=== PATIENT | male | born 1935 | race Caucasian/White ===

== ENCOUNTER 2016-09-14 07:07 | Day surgery (SDC) | payer OTHER ==
[~2016-09-14 07:07] MED LIST: ALBUTEROL SULF8.5 GM IH; AMLODIPINE BESYL5 MG PO; APRESOLINE25 MG PO; ASPIRIN81 M2 PO; ATORVASTATIN CA20 MG PO; AZITHROMYCIN500 M1 PO; B-121000 MC2 PO; CALCITRIOL0.25 MCG PO; CARVEDILOL12.5 MG PO; CARVEDILOL25 MG PO; CLONIDINE HCL0.1 MG PO; COMBIVENT RESPIM4 GM IH; DOXAZOSIN MESYLA4 MG PO; DOXAZOSIN MESYLA8 MG PO; HYDRALAZINE HC100 MG PO; HYDRALAZINE HCL25 MG PO; LASIX40 MG PO; LO-DOSE ASPIRIN81 M1 PO; LOSARTAN POTAS100 MG PO; OMEPRAZOLE20 M2 PO; OMEPRAZOLE20 MG PO; PREDNISONE20 MG PO; PREDNISONE5 MG PO; VITAMIN B-121000 MCG PO
[2016-09-14 08:50] LABS: METH RESISTANT S AUREUS PCR NEGATIVE (NEGATIVE); PROBE CHECK PASS; SPECIMEN PROCESSING CONTROL PASS
== END 2016-09-14 09:25 | disposition home or self-care (01) ==
LOC: CATH 07:07
PROVIDERS: Surgery
DX: T82.858A Stenosis of other vascular prosthetic devices, implants and grafts, initial encounter (principal); Y83.2 Surgical operation with anastomosis, bypass or graft as the cause of abnormal reaction of the patient, or of later complication, without mention of misadventure at the time of the procedure; I12.0 Hypertensive chronic kidney disease with stage 5 chronic kidney disease or end stage renal disease; N18.6 End stage renal disease; Z99.2 Dependence on renal dialysis; J43.9 Emphysema, unspecified; Z95.820 Peripheral vascular angioplasty status with implants and grafts; Z79.82 Long term (current) use of aspirin
CPT/HCPCS: 87641; C1725; C1769; C1894; J1644; J2250; J3010

== ENCOUNTER 2016-11-29 17:15 | Emergency (ER) | payer OTHER ==
[~2016-11-29] VITALS: Ht 172.7 cm; Wt 87.0 kg
[2016-11-29 19:40] VITALS: BP 201/87
[2016-12-06] MEDS ORDERED: RENA-VITE RX T1 EACH PO (16:25)
== END 2016-11-29 19:41 | disposition home or self-care (01) ==
LOC: EME 17:15 → RME 17:15
DX: T82.838A Hemorrhage due to vascular prosthetic devices, implants and grafts, initial encounter (principal); Y83.2 Surgical operation with anastomosis, bypass or graft as the cause of abnormal reaction of the patient, or of later complication, without mention of misadventure at the time of the procedure; N19 Unspecified kidney failure; Z99.2 Dependence on renal dialysis; Z79.82 Long term (current) use of aspirin

== ENCOUNTER 2016-12-07 07:08 | Day surgery (SDC) | payer OTHER ==
[~2016-12-07] VITALS: Ht 172.7 cm; Wt 69.0 kg
[~2016-12-07 07:08] MED LIST changes: +RENA-VITE RX T1 EACH PO
[2016-12-07 08:54] LABS: METH RESISTANT S AUREUS PCR NEGATIVE (NEGATIVE)
[2016-12-07 08:58] LABS: PROBE CHECK PASS; SPECIMEN PROCESSING CONTROL PASS
== END 2016-12-07 09:45 | disposition home or self-care (01) ==
LOC: CATH 07:08
PROVIDERS: Surgery
PROC: 05HY33Z Insertion of Infusion Device into Upper Vein, Percutaneous Approach (ICD-10-PCS; principal; 2016-12-07)
PROC: 057Y3DZ Dilation of Upper Vein with Intraluminal Device, Percutaneous Approach (ICD-10-PCS; principal; 2016-12-07)
PROC: 3E03317 Introduction of Other Thrombolytic into Peripheral Vein, Percutaneous Approach (ICD-10-PCS; principal; 2016-12-07)
PROC: B51W1ZZ Fluoroscopy of Dialysis Shunt/Fistula using Low Osmolar Contrast (ICD-10-PCS; principal; 2016-12-07)
DX: T82.858A Stenosis of other vascular prosthetic devices, implants and grafts, initial encounter (principal); I12.0 Hypertensive chronic kidney disease with stage 5 chronic kidney disease or end stage renal disease; N18.6 End stage renal disease; Z99.2 Dependence on renal dialysis; Z79.82 Long term (current) use of aspirin; Z79.52 Long term (current) use of systemic steroids; Y83.2 Surgical operation with anastomosis, bypass or graft as the cause of abnormal reaction of the patient, or of later complication, without mention of misadventure at the time of the procedure
CPT/HCPCS: 87641; C1725; C1769; C1874; C1894; J1644; J2250; J3010

== ENCOUNTER 2016-12-11 20:38 | Inpatient (IN) | payer OTHER ==
[~2016-12-11] VITALS: Ht 172.7 cm; Wt 70.5 kg
[2016-12-11 21:38] LABS: HEMATOCRIT 27.8 % (38.0-50.0); MCH 30.2 PG (29.0-34.0); MCHC 32.4 G/DL (30.0-36.0); MCV 93.3 FL (86-99); MEAN PLAT.VOLUME 10.3 uM^3 (9.0-12.4); PLATELET COUNT 75 K/uL (156-360); RBC DIS.WIDTH-CV 13.7 % (11.8-14.6); RBC DIS.WIDTH-SD 46.6 % (39-53); RED BLOOD COUNT 2.98 M/uL (4.00-5.50); WHITE BLOOD COUNT 2.7 K/uL (4.1-10.2)
[2016-12-11 21:48] LABS: INTER. NORMALIZED RATIO 1.2; PROTHROMBIN TIME 12.7 (9.2-11.2); PTT 28.5 (25-32)
[2016-12-11 21:49] LABS: CHLORIDE 95 mEq/L (99-109); POTASSIUM 4.5 mEq/L (3.7-5.4); SODIUM 136 mEq/L (136-147)
[2016-12-11 21:50] LABS: GLUCOSE 118 mg/dL (70-99)
[2016-12-11 21:52] LABS: ANION GAP 16 MEQ/L (2-14)
[2016-12-11 21:54] LABS: GFR ESTIMATE (CALCULATED) 6 mL/min/
[2016-12-11 21:55] LABS: UREA NITROGEN (BUN) 64 mg/dL (9-23)
[2016-12-11 21:59] LABS: TROP-I INTERPRETATION NEGATIVE; TROPONIN-I 0.05 ng/mL (0.0-0.30)
[2016-12-12] VITALS (7 sets, daily range): BP systolic 96–130; BP diastolic 30–60
[2016-12-12 03:54] LABS: TROP-I INTERPRETATION NEGATIVE; TROPONIN-I 0.04 ng/mL (0.0-0.30)
[2016-12-12 07:41] LABS: POINT-OF-CARE METER ID UU13113702
[2016-12-12 10:42] LABS: ALKALINE PHOSPHATASE 68 IU/L (3-129); ANION GAP 12 MEQ/L (2-14); CHLORIDE 96 MEQ/L (99-109); GFR ESTIMATE (CALCULATED) 6 mL/min/; GLUCOSE 117 mg/dL (70-99); POTASSIUM 4.9 MEQ/L (3.7-5.4); SAMPLE HEMOLYSIS CHECK 0; SAMPLE ICTERIC CHECK 0; SAMPLE LIPEMIA CHECK 0; SODIUM 133 MEQ/L (136-147); TOTAL BILIRUBIN 0.7 MG/DL (0.0-1.0); UREA NITROGEN (BUN) 68 mg/dL (9-23)
[2016-12-12 11:11] LABS: HEMATOCRIT 22.5 % (38.0-50.0); MCH 30.3 PG (29.0-34.0); MCHC 32.9 G/DL (30.0-36.0); MCV 92.2 FL (86-99); MEAN PLAT.VOLUME 11.5 uM^3 (9.0-12.4); PLATELET COUNT 72 K/uL (156-360); RBC DIS.WIDTH-SD 47.7 % (39-53); RED BLOOD COUNT 2.44 M/uL (4.00-5.50)
[2016-12-12 11:12] LABS: WHITE BLOOD COUNT 5.6 K/uL (4.1-10.2)
[2016-12-12 11:17] LABS: TROP-I INTERPRETATION NEGATIVE; TROPONIN-I 0.04 ng/mL (0.0-0.30)
[2016-12-12 11:55] LABS: ABS NEUTROPHIL COUNT 4.8; ANISOCYTOSIS 1+; BAND NEUTROPHILS 47.8 % (0-8.0); BASOPHILS 0.9 %; EOSINOPHIL ABS CT 0.1; EOSINOPHILS 2.6 % (0-5.0); INSTRUMENT ABS NEUTROPHIL CT 4.8 K/uL; LYMPHOCYTES 6.1 % (15.0-45.0); METAMYELOCYTES 1.7 %; MICROCYTOSIS 1+; MYELOCYTES 1.7 %; PLAT.SUFFICIENCY DECREASED; POIKILOCYTOSIS 1+; SEG.NEUTROPHILS 37.4 % (46.0-76.0)
[2016-12-13] VITALS (7 sets, daily range): BP systolic 122–141; BP diastolic 57–95
[2016-12-13 06:25] LABS: HEMATOCRIT 24.2 % (38.0-50.0); MCHC 32.2 G/DL (30.0-36.0); MCV 93.1 FL (86-99); MEAN PLAT.VOLUME 11.4 uM^3 (9.0-12.4); PLATELET COUNT 91 K/uL (156-360); RBC DIS.WIDTH-SD 47.8 % (39-53)
[2016-12-13 06:44] LABS: ANION GAP 14 MEQ/L (2-14); CHLORIDE 99 MEQ/L (99-109); GFR ESTIMATE (CALCULATED) 5 mL/min/; GLUCOSE 101 mg/dL (70-99); POTASSIUM 4.6 MEQ/L (3.7-5.4); SAMPLE HEMOLYSIS CHECK 0; SAMPLE ICTERIC CHECK 0; SAMPLE LIPEMIA CHECK 0; SODIUM 133 MEQ/L (136-147); UREA NITROGEN (BUN) 78 mg/dL (9-23)
[2016-12-13 06:45] LABS: VANCOMYCIN, TROUGH 11.1 MCG/ML (10-20)
[2016-12-13 08:00] LABS: EOSINOPHIL (%) 4.7 % (0-5); EOSINOPHIL COUNT 0.3 K/uL (0-0.3); HEMATOLOGY COMMENT 1 SMEAR COMPATIBLE; IMMATURE GRANULOCYTE (%) 1.7 % (0.0-0.7); IMMATURE GRANULOCYTE COUNT 0.1 K/uL; INSTRUMENT ABS NEUTROPHIL CT 4.7 K/uL; LYMPHOCYTE COUNT 0.5 K/uL (1.0-2.8); MONOCYTE (%) 7.5 % (3-12); MONOCYTE COUNT 0.5 K/uL (0-0.8); NEUTROPHIL (%) 77.9 % (45-76); NEUTROPHIL COUNT 4.7 K/uL (1.8-6.4)
[2016-12-13 08:40] LABS: HEMATOCRIT 21.2 % (38.0-50.0)
[2016-12-13 16:14] LABS: HEMATOCRIT 26.1 % (38.0-50.0); MCH 29.8 PG (29.0-34.0); MCHC 32.6 G/DL (30.0-36.0); MCV 91.6 FL (86-99); MEAN PLAT.VOLUME 11.3 uM^3 (9.0-12.4); PLATELET COUNT 84 K/uL (156-360); RBC DIS.WIDTH-SD 47.6 % (39-53); RED BLOOD COUNT 2.85 M/uL (4.00-5.50)
[2016-12-13 16:19] LABS: WHITE BLOOD COUNT 9.2 K/uL (4.1-10.2)
[2016-12-13 17:04] LABS: ABS NEUTROPHIL COUNT 7.9; ATYPICAL LYMPHOCYTE 0.9 %; BAND NEUTROPHILS 15.9 % (0-8.0); EOSINOPHIL ABS CT 0.4; EOSINOPHILS 4.4 % (0-5.0); LYMPHOCYTES 4.4 % (15.0-45.0); METAMYELOCYTES 0.9 %; PLAT.SUFFICIENCY DECREASED; POIKILOCYTOSIS 2+; SEG.NEUTROPHILS 69.9 % (46.0-76.0); SMUDGE CELLS 7.1
[2016-12-13 21:04] LABS: HEMATOCRIT 24.1 % (38.0-50.0); MCV 90.9 FL (86-99)
[2016-12-14] VITALS (11 sets, daily range): BP systolic 127–158; BP diastolic 56–81
[2016-12-14 05:44] LABS: EOSINOPHIL (%) 3.6 % (0-5); EOSINOPHIL COUNT 0.3 K/uL (0-0.3); HEMATOCRIT 21.5 % (38.0-50.0); IMMATURE GRANULOCYTE (%) 2.6 % (0.0-0.7); IMMATURE GRANULOCYTE COUNT 0.2 K/uL; INSTRUMENT ABS NEUTROPHIL CT 5.1 K/uL; LYMPHOCYTE COUNT 0.9 K/uL (1.0-2.8); MCH 30.1 PG (29.0-34.0); MCV 91.1 FL (86-99); MEAN PLAT.VOLUME 11.2 uM^3 (9.0-12.4); MONOCYTE (%) 10.4 % (3-12); MONOCYTE COUNT 0.8 K/uL (0-0.8); NEUTROPHIL (%) 70.6 % (45-76); NEUTROPHIL COUNT 5.1 K/uL (1.8-6.4); PLATELET COUNT 78 K/uL (156-360); RBC DIS.WIDTH-CV 14.9 % (11.8-14.6); RBC DIS.WIDTH-SD 49.3 % (39-53); RED BLOOD COUNT 2.36 M/uL (4.00-5.50); WHITE BLOOD COUNT 7.2 K/uL (4.1-10.2)
[2016-12-14 07:27] LABS: ANION GAP 13 MEQ/L (2-14); CHLORIDE 103 MEQ/L (99-109); GFR ESTIMATE (CALCULATED) 9 mL/min/; GLUCOSE 84 mg/dL (70-99); POTASSIUM 4.7 MEQ/L (3.7-5.4); SAMPLE HEMOLYSIS CHECK 0; SAMPLE ICTERIC CHECK 0; SAMPLE LIPEMIA CHECK 0; SODIUM 138 MEQ/L (136-147); UREA NITROGEN (BUN) 46 mg/dL (9-23)
[2016-12-14 15:22] LABS: HEMATOCRIT 24.8 % (38.0-50.0); MCV 90.5 FL (86-99)
[2016-12-14 20:54] LABS: HEMATOCRIT 23.1 % (38.0-50.0); MCV 89.5 FL (86-99)
[2016-12-15 05:13] VITALS: BP 160/80
[2016-12-15 06:18] LABS: ANION GAP 11 MEQ/L (2-14); CHLORIDE 100 MEQ/L (99-109); GFR ESTIMATE (CALCULATED) 7 mL/min/; GLUCOSE 123 mg/dL (70-99); POTASSIUM 4.4 MEQ/L (3.7-5.4); SAMPLE HEMOLYSIS CHECK 0; SAMPLE ICTERIC CHECK 0; SAMPLE LIPEMIA CHECK 0; SODIUM 134 MEQ/L (136-147); UREA NITROGEN (BUN) 55 mg/dL (9-23)
[2016-12-15 06:23] LABS: EOSINOPHIL (%) 3.1 % (0-5); EOSINOPHIL COUNT 0.3 K/uL (0-0.3); HEMATOCRIT 23.5 % (38.0-50.0); IMMATURE GRANULOCYTE COUNT 0.4 K/uL; INSTRUMENT ABS NEUTROPHIL CT 7.1 K/uL; LYMPHOCYTE COUNT 0.9 K/uL (1.0-2.8); MCH 30.5 PG (29.0-34.0); MCV 89.7 FL (86-99); MONOCYTE (%) 9.7 % (3-12); MONOCYTE COUNT 0.9 K/uL (0-0.8); NEUTROPHIL (%) 73.6 % (45-76); NEUTROPHIL COUNT 7.1 K/uL (1.8-6.4); PLATELET COUNT 86 K/uL (156-360); RBC DIS.WIDTH-CV 14.6 % (11.8-14.6); RBC DIS.WIDTH-SD 47.6 % (39-53); RED BLOOD COUNT 2.62 M/uL (4.00-5.50)
[2016-12-15 06:27] LABS: WHITE BLOOD COUNT 9.7 K/uL (4.1-10.2)
[2016-12-15 11:17] LABS: HBSG INDEX 0.21
[2016-12-15 12:32] VITALS: BP 152/63
[2016-12-15 16:37] VITALS: BP 158/65
[2016-12-15 20:09] VITALS: BP 162/75
[2016-12-15 21:00] VITALS: BP 145/78
[2016-12-15 23:53] VITALS: BP 156/78
[2016-12-16 04:33] VITALS: BP 152/72
[2016-12-16 06:25] LABS: HEMATOCRIT 23.9 % (38.0-50.0); MCH 29.9 PG (29.0-34.0); MCHC 33.1 G/DL (30.0-36.0); MCV 90.5 FL (86-99); RBC DIS.WIDTH-CV 14.3 % (11.8-14.6); RED BLOOD COUNT 2.64 M/uL (4.00-5.50); WHITE BLOOD COUNT 9.2 K/uL (4.1-10.2)
[2016-12-16 06:34] LABS: ANION GAP 9 MEQ/L (2-14); CHLORIDE 99 MEQ/L (99-109); GFR ESTIMATE (CALCULATED) 10 mL/min/; GLUCOSE 103 mg/dL (70-99); POTASSIUM 4.3 MEQ/L (3.7-5.4); SAMPLE HEMOLYSIS CHECK 0; SAMPLE ICTERIC CHECK 0; SAMPLE LIPEMIA CHECK 0; SODIUM 135 MEQ/L (136-147); UREA NITROGEN (BUN) 34 mg/dL (9-23)
[2016-12-16 06:46] LABS: PLATELET COUNT 115 K/uL (156-360)
[2016-12-16 07:36] LABS: ABS NEUTROPHIL COUNT 6.8; BAND NEUTROPHILS 3.5 % (0-8.0); BASOPHILS 1.7 %; EOSINOPHIL ABS CT 0.2; EOSINOPHILS 1.8 % (0-5.0); LYMPHOCYTES 12.2 % (15.0-45.0); METAMYELOCYTES 1.7 %; MYELOCYTES 0.9 %; PLAT.SUFFICIENCY DECREASED; SEG.NEUTROPHILS 70.4 % (46.0-76.0)
[2016-12-16 08:00] VITALS: BP 186/91
[2016-12-16 12:04] VITALS: BP 180/70
[2016-12-16 12:50] LABS: HEMATOCRIT 25.5 % (38.0-50.0); MCV 91.7 FL (86-99)
[2016-12-16 20:11] VITALS: BP 148/78
[2016-12-16 20:56] LABS: HEMATOCRIT 24.4 % (38.0-50.0); MCV 91.7 FL (86-99)
[2016-12-16 23:53] VITALS: BP 160/70
[2016-12-17 05:04] VITALS: BP 173/74
[2016-12-17 05:33] LABS: HEMATOCRIT 23.1 % (38.0-50.0); MCH 30.2 PG (29.0-34.0); MCHC 32.9 G/DL (30.0-36.0); MCV 91.7 FL (86-99); MEAN PLAT.VOLUME 10.5 uM^3 (9.0-12.4); PLATELET COUNT 126 K/uL (156-360); RBC DIS.WIDTH-CV 13.9 % (11.8-14.6); RBC DIS.WIDTH-SD 46.8 % (39-53); RED BLOOD COUNT 2.52 M/uL (4.00-5.50); WHITE BLOOD COUNT 8.7 K/uL (4.1-10.2)
[2016-12-17 06:17] LABS: ANION GAP 10 MEQ/L (2-14); CHLORIDE 100 MEQ/L (99-109); GFR ESTIMATE (CALCULATED) 8 mL/min/; GLUCOSE 97 mg/dL (70-99); POTASSIUM 4.3 MEQ/L (3.7-5.4); SAMPLE HEMOLYSIS CHECK 0; SAMPLE ICTERIC CHECK 0; SAMPLE LIPEMIA CHECK 0; SODIUM 134 MEQ/L (136-147); UREA NITROGEN (BUN) 42 mg/dL (9-23)
[2016-12-17 06:22] LABS: ABS NEUTROPHIL COUNT 6.9; ATYPICAL LYMPHOCYTE 1.9 %; BAND NEUTROPHILS 3.7 % (0-8.0); BASOPHILS 0.9 %; EOSINOPHIL ABS CT 0.1; EOSINOPHILS 0.9 % (0-5.0); INSTRUMENT ABS NEUTROPHIL CT 5.8 K/uL; LYMPHOCYTES 11.9 % (15.0-45.0); METAMYELOCYTES 1.8 %; SEG.NEUTROPHILS 75.2 % (46.0-76.0)
[2016-12-17 11:36] LABS: HEMATOCRIT 24.6 % (38.0-50.0); MCV 91.1 FL (86-99)
[2016-12-17 16:18] VITALS: BP 130/55
[2016-12-17 19:50] VITALS: BP 179/74
[2016-12-18 04:02] VITALS: BP 165/70
[2016-12-18 06:19] LABS: ANION GAP 8 MEQ/L (2-14); CHLORIDE 103 MEQ/L (99-109); GFR ESTIMATE (CALCULATED) 11 mL/min/; GLUCOSE 110 mg/dL (70-99); POTASSIUM 4.1 MEQ/L (3.7-5.4); SAMPLE HEMOLYSIS CHECK 0; SAMPLE ICTERIC CHECK 0; SAMPLE LIPEMIA CHECK 0; SODIUM 137 MEQ/L (136-147); UREA NITROGEN (BUN) 24 mg/dL (9-23); VANCOMYCIN, TROUGH 19.9 MCG/ML (10-20)
[2016-12-18 06:41] LABS: HEMATOCRIT 24.4 % (38.0-50.0); MCH 29.9 PG (29.0-34.0); MCHC 32.4 G/DL (30.0-36.0); MCV 92.4 FL (86-99); MEAN PLAT.VOLUME 10.3 uM^3 (9.0-12.4); RBC DIS.WIDTH-CV 13.7 % (11.8-14.6); RBC DIS.WIDTH-SD 46.2 % (39-53); RED BLOOD COUNT 2.64 M/uL (4.00-5.50); WHITE BLOOD COUNT 9.3 K/uL (4.1-10.2)
[2016-12-18 06:42] LABS: PLATELET COUNT 171 K/uL (156-360)
[2016-12-18 07:33] LABS: ABS NEUTROPHIL COUNT 7.4; ANISOCYTOSIS 1+; ATYPICAL LYMPHOCYTE 0.9 %; BAND NEUTROPHILS 1.7 % (0-8.0); EOSINOPHIL ABS CT 0.2; EOSINOPHILS 1.7 % (0-5.0); INSTRUMENT ABS NEUTROPHIL CT 6.1 K/uL; LYMPHOCYTES 9.6 % (15.0-45.0); MACROCYTES 1+; METAMYELOCYTES 3.5 %; PLAT.SUFFICIENCY ADEQUATE; POLYCHROMASIA 1+; SEG.NEUTROPHILS 77.4 % (46.0-76.0)
[2016-12-18 07:58] VITALS: BP 174/76
[2016-12-18 11:37] VITALS: BP 160/58
== END 2016-12-18 16:28 | disposition home health service (06) | DRG 907 ==
LOC: EME → EDBD 20:38 → EME 20:38 → 3EAST 23:28 → EDOF 23:28 → 3EAST 12-12 01:25
PROVIDERS: Emergency Medicine; Hospitalist; Internal Medicine; Internal Medicine Nephrology; Student in an Organized Health Care Education/Training Program
PROC: 05WY0KZ Revision of Nonautologous Tissue Substitute in Upper Vein, Open Approach (ICD-10-PCS; principal; 2016-12-13)
PROC: B544ZZA Ultrasonography of Left Jugular Veins, Guidance (ICD-10-PCS; principal; 2016-12-13)
PROC: 03WY07Z Revision of Autologous Tissue Substitute in Upper Artery, Open Approach (ICD-10-PCS; principal; 2016-12-13)
PROC: 03BY0ZZ Excision of Upper Artery, Open Approach (ICD-10-PCS; principal; 2016-12-13)
PROC: 3E03317 Introduction of Other Thrombolytic into Peripheral Vein, Percutaneous Approach (ICD-10-PCS; principal; 2016-12-13)
PROC: 02HV33Z Insertion of Infusion Device into Superior Vena Cava, Percutaneous Approach (ICD-10-PCS; principal; 2016-12-13)
PROC: 5A1D60Z (ICD-10-PCS; 2016-12-13)
PROC: 30233N1 Transfusion of Nonautologous Red Blood Cells into Peripheral Vein, Percutaneous Approach (ICD-10-PCS; 2016-12-13)
DX: T85.79XA Infection and inflammatory reaction due to other internal prosthetic devices, implants and grafts, initial encounter (principal); A41.02 Sepsis due to Methicillin resistant Staphylococcus aureus; T82.838A Hemorrhage due to vascular prosthetic devices, implants and grafts, initial encounter; D62 Acute posthemorrhagic anemia; I72.1 Aneurysm of artery of upper extremity; I12.0 Hypertensive chronic kidney disease with stage 5 chronic kidney disease or end stage renal disease; N18.6 End stage renal disease; D61.818 Other pancytopenia; D63.1 Anemia in chronic kidney disease; J44.9 Chronic obstructive pulmonary disease, unspecified; K21.9 Gastro-esophageal reflux disease without esophagitis; E78.00 Pure hypercholesterolemia, unspecified; Z99.2 Dependence on renal dialysis; G43.909 Migraine, unspecified, not intractable, without status migrainosus; K44.9 Diaphragmatic hernia without obstruction or gangrene; I73.9 Peripheral vascular disease, unspecified; Z87.891 Personal history of nicotine dependence
CPT/HCPCS: 71010; 71020; 80048; 80053; 80202; 82948; 83605; 83880; 84484; 85014; 85018; 85025; 85025 91; 85027; 85610; 85730; 86850; 86900; 86901; 86920; 87040; 87070; 87075; 87077; 87186; 87205; 87340; 87502; 87801; 93005; 93306; 94640; 94640 76; 94799; 99202; 99281; 99285; C1752; C1768; C2628; J0330; J0692; J0881; J1170; J1270; J1644; J2405; J2720; J3010; J3370; J7030; J7040; J7050; J7644; P9016

== ENCOUNTER 2017-07-12 20:50 | Inpatient (IN) | payer OTHER ==
[~2017-07-12] VITALS: Ht 172.7 cm; Wt 64.3 kg
[~2017-07-12 20:50] MED LIST changes: +CARDURA2 M1 PO
[2017-07-12 21:43] LABS: EOSINOPHIL (%) 2.8 % (0-5); EOSINOPHIL COUNT 0.1 K/uL (0-0.3); HEMATOCRIT 38.7 % (38.0-50.0); IMMATURE GRANULOCYTE (%) 0.3 % (0.0-0.7); INSTRUMENT ABS NEUTROPHIL CT 3.5 K/uL; LYMPHOCYTE COUNT 0.2 K/uL (1.0-2.8); MCH 28.9 PG (29.0-34.0); MCHC 31.8 G/DL (30.0-36.0); MCV 90.8 FL (86-99); MEAN PLAT.VOLUME 10.1 uM^3 (9.0-12.4); MONOCYTE (%) 0.8 % (3-12); NEUTROPHIL (%) 91.7 % (45-76); NEUTROPHIL COUNT 3.5 K/uL (1.8-6.4); PLATELET COUNT 105 K/uL (156-360); RBC DIS.WIDTH-CV 15.6 % (11.8-14.6); RBC DIS.WIDTH-SD 51.6 % (39-53); RED BLOOD COUNT 4.26 M/uL (4.00-5.50); WHITE BLOOD COUNT 3.9 K/uL (4.1-10.2)
[2017-07-12 21:51] LABS: CHLORIDE 99 mEq/L (99-109); POTASSIUM 5.5 mEq/L (3.7-5.4); SODIUM 136 mEq/L (136-147)
[2017-07-12 21:53] LABS: GLUCOSE 117 mg/dL (70-99)
[2017-07-12 21:55] LABS: ANION GAP 12 MEQ/L (2-14); TOTAL BILIRUBIN 1.4 mg/dL (0.0-1.0)
[2017-07-12 21:57] LABS: ALKALINE PHOSPHATASE 105 IU/L (3-129); GFR ESTIMATE (CALCULATED) 9 mL/min/
[2017-07-12 21:58] LABS: UREA NITROGEN (BUN) 36 mg/dL (9-23)
[2017-07-12 22:04] LABS: TROP-I INTERPRETATION NEGATIVE; TROPONIN-I 0.04 ng/mL (0.0-0.30)
[2017-07-12] MEDS ORDERED: DOXAZOSIN MESYLA4 MG PO (22:33)
[2017-07-12] MEDS ORDERED: RENA PLEX D PO (22:42)
[2017-07-12] MEDS ORDERED: ALEVE220 M2 PO (22:42)
[2017-07-12] MEDS ORDERED: NORVASC5 MG PO (22:43)
[2017-07-13] VITALS (7 sets, daily range): BP systolic 122–159; BP diastolic 60–93
[2017-07-13 04:59] LABS: CARBON DIOXIDE (BICARBONATE) 29.3 MEQ/L (20-31)
[2017-07-13 05:55] LABS: MCHC 31.8 G/DL (30.0-36.0); MCV 91.2 FL (86-99); MEAN PLAT.VOLUME 10.3 uM^3 (9.0-12.4); PLATELET COUNT 98 K/uL (156-360); RBC DIS.WIDTH-CV 15.8 % (11.8-14.6); RBC DIS.WIDTH-SD 52.5 % (39-53); RED BLOOD COUNT 3.73 M/uL (4.00-5.50); WHITE BLOOD COUNT 12.1 K/uL (4.1-10.2)
[2017-07-13 06:02] LABS: INTER. NORMALIZED RATIO 1.2; PROTHROMBIN TIME 13.4 SEC (10.2-12.9)
[2017-07-13 06:05] LABS: PTT 28.7 SEC (25-37)
[2017-07-13 06:16] LABS: TROP-I INTERPRETATION POSITIVE; TROPONIN-I 1.25 ng/mL (0.0-0.30)
[2017-07-13 06:19] LABS: ALKALINE PHOSPHATASE 88 IU/L (3-129); AMYLASE 46 IU/L (1-118); ANION GAP 11 MEQ/L (2-14); CHLORIDE 100 MEQ/L (99-109); DIRECT BILIRUBIN 0.3 mg/dL (0.0-0.3); GFR ESTIMATE (CALCULATED) 9 mL/min/; GLUCOSE 97 mg/dL (70-99); LIPASE 19 U/L (1.0-51.0); MAGNESIUM 1.4 mg/dl (1.3-2.7); POTASSIUM 4.7 MEQ/L (3.7-5.4); SAMPLE HEMOLYSIS CHECK 0; SAMPLE ICTERIC CHECK 0; SAMPLE LIPEMIA CHECK 0; SODIUM 136 MEQ/L (136-147); TOTAL BILIRUBIN 0.8 MG/DL (0.0-1.0); UREA NITROGEN (BUN) 38 mg/dL (9-23)
[2017-07-13 13:08] LABS: TROP-I INTERPRETATION POSITIVE; TROPONIN-I 1.09 ng/mL (0.0-0.30)
[2017-07-13 18:08] LABS: TROP-I INTERPRETATION POSITIVE; TROPONIN-I 0.86 ng/mL (0.0-0.30)
[2017-07-14 06:00] VITALS: BP 132/60
[2017-07-14 07:15] VITALS: BP 116/56
[2017-07-14 08:24] LABS: EOSINOPHIL COUNT 0.4 K/uL (0-0.3); HEMATOCRIT 33.2 % (38.0-50.0); IMMATURE GRANULOCYTE (%) 0.3 % (0.0-0.7); INSTRUMENT ABS NEUTROPHIL CT 4.4 K/uL; LYMPHOCYTE COUNT 0.7 K/uL (1.0-2.8); MCH 29.4 PG (29.0-34.0); MCHC 32.2 G/DL (30.0-36.0); MCV 91.2 FL (86-99); MEAN PLAT.VOLUME 10.8 uM^3 (9.0-12.4); MONOCYTE (%) 10.1 % (3-12); MONOCYTE COUNT 0.6 K/uL (0-0.8); NEUTROPHIL (%) 71.5 % (45-76); NEUTROPHIL COUNT 4.4 K/uL (1.8-6.4); PLATELET COUNT 99 K/uL (156-360); RBC DIS.WIDTH-CV 15.7 % (11.8-14.6); RBC DIS.WIDTH-SD 51.9 % (39-53); RED BLOOD COUNT 3.64 M/uL (4.00-5.50); WHITE BLOOD COUNT 6.1 K/uL (4.1-10.2)
[2017-07-14 08:44] LABS: TROP-I INTERPRETATION INDETERMINATE; TROPONIN-I 0.43 ng/mL (0.0-0.30)
[2017-07-14 09:01] LABS: ANION GAP 12 MEQ/L (2-14); CHLORIDE 102 MEQ/L (99-109); GFR ESTIMATE (CALCULATED) 8 mL/min/; GLUCOSE 134 mg/dL (70-99); POTASSIUM 4.8 MEQ/L (3.7-5.4); SAMPLE HEMOLYSIS CHECK 0; SAMPLE ICTERIC CHECK 0; SAMPLE LIPEMIA CHECK 0; SODIUM 139 MEQ/L (136-147); UREA NITROGEN (BUN) 56 mg/dL (9-23)
[2017-07-14 09:05] LABS: VANCOMYCIN, TROUGH 8.8 MCG/ML (10-20)
[2017-07-14 10:42] LABS: HBSG INDEX 0.21; HEPATITIS B SURFACE ANTIBODY Nonreactive
[2017-07-14 12:15] VITALS: BP 137/60
[2017-07-14 17:20] VITALS: BP 145/100
[2017-07-14 20:40] VITALS: BP 136/84
[2017-07-15] VITALS: BP 130/75
[2017-07-15 04:40] VITALS: BP 156/70
[2017-07-15 07:14] VITALS: BP 146/67
[2017-07-15 07:54] LABS: EOSINOPHIL (%) 4.1 % (0-5); EOSINOPHIL COUNT 0.3 K/uL (0-0.3); HEMATOCRIT 33.5 % (38.0-50.0); IMMATURE GRANULOCYTE (%) 0.4 % (0.0-0.7); INSTRUMENT ABS NEUTROPHIL CT 5.7 K/uL; LYMPHOCYTE COUNT 0.6 K/uL (1.0-2.8); MCH 28.7 PG (29.0-34.0); MCHC 31.6 G/DL (30.0-36.0); MCV 90.8 FL (86-99); MEAN PLAT.VOLUME 10.1 uM^3 (9.0-12.4); MONOCYTE (%) 11.5 % (3-12); MONOCYTE COUNT 0.9 K/uL (0-0.8); NEUTROPHIL (%) 75.6 % (45-76); NEUTROPHIL COUNT 5.7 K/uL (1.8-6.4); PLATELET COUNT 121 K/uL (156-360); RBC DIS.WIDTH-CV 15.9 % (11.8-14.6); RBC DIS.WIDTH-SD 52.5 % (39-53); RED BLOOD COUNT 3.69 M/uL (4.00-5.50); WHITE BLOOD COUNT 7.5 K/uL (4.1-10.2)
[2017-07-15 08:10] LABS: ANION GAP 8 MEQ/L (2-14); CHLORIDE 98 MEQ/L (99-109); POTASSIUM 4.1 MEQ/L (3.7-5.4); SAMPLE HEMOLYSIS CHECK 0; SAMPLE ICTERIC CHECK 0; SAMPLE LIPEMIA CHECK 0; SODIUM 133 MEQ/L (136-147)
[2017-07-15 08:19] LABS: GLUCOSE 144 mg/dL (70-99); UREA NITROGEN (BUN) 28 mg/dL (9-23)
[2017-07-15 08:20] LABS: GFR ESTIMATE (CALCULATED) 12 mL/min/
[2017-07-15 11:27] VITALS: BP 143/67
[2017-07-15 19:42] VITALS: BP 173/74
[2017-07-15 23:14] VITALS: BP 163/72
[2017-07-16 05:37] VITALS: BP 162/74
[2017-07-16 07:45] VITALS: BP 170/73
[2017-07-16 11:48] VITALS: BP 146/67
[2017-07-16 16:45] VITALS: BP 141/95
[2017-07-16 19:42] VITALS: BP 164/71
[2017-07-16 23:31] VITALS: BP 158/68
[2017-07-17 04:21] VITALS: BP 158/72
[2017-07-17 07:40] LABS: HEMATOCRIT 34.6 % (38.0-50.0); MCH 29.7 PG (29.0-34.0); MCHC 32.7 G/DL (30.0-36.0); MCV 90.8 FL (86-99); MEAN PLAT.VOLUME 10.1 uM^3 (9.0-12.4); PLATELET COUNT 122 K/uL (156-360); RBC DIS.WIDTH-CV 15.3 % (11.8-14.6); RBC DIS.WIDTH-SD 50.5 % (39-53); RED BLOOD COUNT 3.81 M/uL (4.00-5.50); WHITE BLOOD COUNT 6.7 K/uL (4.1-10.2)
[2017-07-17 08:03] LABS: ALKALINE PHOSPHATASE 101 IU/L (3-129); ANION GAP 13 MEQ/L (2-14); CHLORIDE 101 MEQ/L (99-109); SAMPLE HEMOLYSIS CHECK 0; SAMPLE ICTERIC CHECK 0; SAMPLE LIPEMIA CHECK 0; UREA NITROGEN (BUN) 36 mg/dL (9-23)
[2017-07-17 08:09] LABS: GFR ESTIMATE (CALCULATED) 9 mL/min/; GLUCOSE 93 mg/dL (70-99); SODIUM 140 MEQ/L (136-147); TOTAL BILIRUBIN 0.5 MG/DL (0.0-1.0)
[2017-07-17 08:45] VITALS: BP 154/67
[2017-07-17] MEDS ORDERED: ENDOCET 5-3251 EACH PO (09:39)
[2017-07-17] MEDS ORDERED: ANCEF,KEFZOL1 GM IV (09:39)
[2017-07-17] MEDS ORDERED: FLAGYL500 MG PO (09:39)
== END 2017-07-17 12:35 | disposition home or self-care (01) | DRG 871 ==
LOC: EME 20:50 → 4EAST 23:02 → EDOF 23:02 → ENRESERV 23:09 → CANRESERV 07-13 01:06 → ENRESERV 07-13 01:06 → EDOF 07-13 01:16 → ENRESERV 07-13 01:17 → 4EAST 07-13 02:22
PROVIDERS: Emergency Medicine; Hospitalist; Internal Medicine; Internal Medicine Cardiovascular Disease; Internal Medicine Nephrology; Physician Assistant Medical
PROC: 0F9430Z Drainage of Gallbladder with Drainage Device, Percutaneous Approach (ICD-10-PCS; 2017-07-13)
PROC: 5A1D70Z Performance of Urinary Filtration, Intermittent, Less than 6 Hours Per Day (ICD-10-PCS; principal; 2017-07-14)
DX: A41.51 Sepsis due to Escherichia coli [E. coli] (principal); K80.00 Calculus of gallbladder with acute cholecystitis without obstruction; R09.02 Hypoxemia; E87.5 Hyperkalemia; E87.2 Acidosis; I12.0 Hypertensive chronic kidney disease with stage 5 chronic kidney disease or end stage renal disease; N18.6 End stage renal disease; D63.1 Anemia in chronic kidney disease; D69.6 Thrombocytopenia, unspecified; D72.819 Decreased white blood cell count, unspecified; I07.1 Rheumatic tricuspid insufficiency; I95.9 Hypotension, unspecified; G62.9 Polyneuropathy, unspecified; J44.9 Chronic obstructive pulmonary disease, unspecified; E78.5 Hyperlipidemia, unspecified; G43.109 Migraine with aura, not intractable, without status migrainosus; R00.0 Tachycardia, unspecified; I73.9 Peripheral vascular disease, unspecified; Z66 Do not resuscitate; Z86.14 Personal history of Methicillin resistant Staphylococcus aureus infection; Z79.82 Long term (current) use of aspirin; Z80.3 Family history of malignant neoplasm of breast; Z85.038 Personal history of other malignant neoplasm of large intestine; Z85.828 Personal history of other malignant neoplasm of skin; Z87.891 Personal history of nicotine dependence; Z90.49 Acquired absence of other specified parts of digestive tract; Z98.42 Cataract extraction status, left eye; Z99.2 Dependence on renal dialysis
CPT/HCPCS: 49405; 71020; 71250; 76705; 80053; 80069; 80202; 81003; 82150; 82248; 82803; 83605; 83690; 83735; 84100; 84484; 85025; 85027; 85610; 85730; 86706; 87040; 87070; 87075; 87077; 87186; 87205; 87340; 87493; 87502; 87801; 93005; 93306; 99281; 99285; C1769; J0456; J0696; J1644; J2405; J3010; J3370; J7030; J7050; J7120; J7644; S0028; S0030

== ENCOUNTER 2017-08-23 10:13 | Inpatient (IN) | payer OTHER ==
[~2017-08-23] VITALS: Ht 172.7 cm; Wt 62.0 kg
[~2017-08-23 10:13] MED LIST changes: +ALEVE220 M2 PO; +ANCEF,KEFZOL1 GM IV; +ENDOCET 5-3251 EACH PO; +FLAGYL500 MG PO; +NORVASC5 MG PO; +RENA PLEX D PO
[2017-08-23 11:14] VITALS: BP 191/74
[2017-08-23 11:58] LABS: METH RESISTANT S AUREUS PCR POSITIVE (NEGATIVE)
[2017-08-23 12:02] LABS: PROBE CHECK PASS; SPECIMEN PROCESSING CONTROL PASS
[2017-08-23 16:22] LABS: HEMATOCRIT 37.9 % (38.0-50.0); MCH 29.8 PG (29.0-34.0); MCHC 31.7 G/DL (30.0-36.0); MEAN PLAT.VOLUME 9.8 uM^3 (9.0-12.4); PLATELET COUNT 130 K/uL (156-360); RBC DIS.WIDTH-SD 58.9 % (39-53); RED BLOOD COUNT 4.03 M/uL (4.00-5.50); WHITE BLOOD COUNT 8.4 K/uL (4.1-10.2)
[2017-08-23 19:35] VITALS: BP 164/71
[2017-08-24 00:29] VITALS: BP 152/68
[2017-08-24 04:58] VITALS: BP 138/63
[2017-08-24 05:28] LABS: HEMATOCRIT 32.2 % (38.0-50.0); MCH 30.1 PG (29.0-34.0); MCHC 31.4 G/DL (30.0-36.0); MCV 95.8 FL (86-99); MEAN PLAT.VOLUME 9.9 uM^3 (9.0-12.4); PLATELET COUNT 114 K/uL (156-360); RBC DIS.WIDTH-CV 17.2 % (11.8-14.6); RBC DIS.WIDTH-SD 60.2 % (39-53); RED BLOOD COUNT 3.36 M/uL (4.00-5.50)
[2017-08-24 05:55] LABS: ANION GAP 11 MEQ/L (2-14); CHLORIDE 98 MEQ/L (99-109); GFR ESTIMATE (CALCULATED) 10 mL/min/ (58.99-99999); GLUCOSE 240 mg/dL (70-99); POTASSIUM 5.3 MEQ/L (3.7-5.4); SAMPLE HEMOLYSIS CHECK 0; SAMPLE ICTERIC CHECK 0; SAMPLE LIPEMIA CHECK 0; SODIUM 137 MEQ/L (136-147); UREA NITROGEN (BUN) 32 mg/dL (9-23)
[2017-08-24 12:17] VITALS: BP 135/65
[2017-08-24 15:33] LABS: HEMATOCRIT 33.3 % (38.0-50.0); MCH 30.1 PG (29.0-34.0); MCHC 31.2 G/DL (30.0-36.0); MCV 96.2 FL (86-99); MEAN PLAT.VOLUME 10.1 uM^3 (9.0-12.4); PLATELET COUNT 124 K/uL (156-360); RBC DIS.WIDTH-CV 17.1 % (11.8-14.6); RBC DIS.WIDTH-SD 60.7 % (39-53); RED BLOOD COUNT 3.46 M/uL (4.00-5.50); WHITE BLOOD COUNT 10.3 K/uL (4.1-10.2)
[2017-08-24 15:42] VITALS: BP 149/67
[2017-08-24 15:58] LABS: ANION GAP 8 MEQ/L (2-14); CHLORIDE 99 MEQ/L (99-109); POTASSIUM 4.5 MEQ/L (3.7-5.4); SAMPLE HEMOLYSIS CHECK 0; SAMPLE ICTERIC CHECK 0; SAMPLE LIPEMIA CHECK 0; SODIUM 137 MEQ/L (136-147)
[2017-08-24 16:04] LABS: UREA NITROGEN (BUN) 15 mg/dL (9-23)
[2017-08-24 16:11] LABS: ALKALINE PHOSPHATASE 103 IU/L (3-129); GFR ESTIMATE (CALCULATED) 19 mL/min/ (58.99-99999); GLUCOSE 118 mg/dL (70-99); TOTAL BILIRUBIN 0.9 MG/DL (0.0-1.0)
[2017-08-24 16:36] LABS: INTER. NORMALIZED RATIO 1.1; PROTHROMBIN TIME 13.1 SEC (10.2-12.9)
[2017-08-24 16:38] LABS: PTT 26.1 SEC (25-37)
[2017-08-24 19:15] VITALS: BP 151/66
[2017-08-25] VITALS (7 sets, daily range): BP systolic 127–167; BP diastolic 57–75
[2017-08-25 05:04] LABS: MCH 30.6 PG (29.0-34.0); MCHC 31.6 G/DL (30.0-36.0); MCV 96.9 FL (86-99); MEAN PLAT.VOLUME 10.2 uM^3 (9.0-12.4); PLATELET COUNT 120 K/uL (156-360); RBC DIS.WIDTH-CV 16.7 % (11.8-14.6); RBC DIS.WIDTH-SD 59.5 % (39-53); WHITE BLOOD COUNT 10.1 K/uL (4.1-10.2)
[2017-08-25 05:34] LABS: CHLORIDE 97 mEq/L (99-109); SODIUM 135 mEq/L (136-147)
[2017-08-25 05:36] LABS: GLUCOSE 108 mg/dL (70-99)
[2017-08-25 05:37] LABS: ANION GAP 10 MEQ/L (2-14)
[2017-08-25 05:40] LABS: GFR ESTIMATE (CALCULATED) 12 mL/min/ (58.99-99999)
[2017-08-25 05:41] LABS: UREA NITROGEN (BUN) 28 mg/dL (9-23)
[2017-08-26 03:39] VITALS: BP 147/57
[2017-08-26 05:13] LABS: EOSINOPHIL (%) 4.9 % (0-5); EOSINOPHIL COUNT 0.2 K/uL (0-0.3); IMMATURE GRANULOCYTE (%) 0.3 % (0.0-0.7); INSTRUMENT ABS NEUTROPHIL CT 2.9 K/uL; LYMPHOCYTE COUNT 0.4 K/uL (1.0-2.8); MCHC 31.3 G/DL (30.0-36.0); MCV 95.8 FL (86-99); MEAN PLAT.VOLUME 9.6 uM^3 (9.0-12.4); MONOCYTE (%) 10.1 % (3-12); MONOCYTE COUNT 0.4 K/uL (0-0.8); NEUTROPHIL (%) 73.8 % (45-76); NEUTROPHIL COUNT 2.9 K/uL (1.8-6.4); PLATELET COUNT 110 K/uL (156-360); RED BLOOD COUNT 3.13 M/uL (4.00-5.50); WHITE BLOOD COUNT 3.9 K/uL (4.1-10.2)
[2017-08-26 05:49] LABS: ALKALINE PHOSPHATASE 88 IU/L (3-129); ANION GAP 12 MEQ/L (2-14); CHLORIDE 97 MEQ/L (99-109); GFR ESTIMATE (CALCULATED) 9 mL/min/ (58.99-99999); GLUCOSE 99 mg/dL (70-99); MAGNESIUM 1.9 mg/dl (1.3-2.7); POTASSIUM 4.7 MEQ/L (3.7-5.4); SAMPLE HEMOLYSIS CHECK 0; SAMPLE ICTERIC CHECK 0; SAMPLE LIPEMIA CHECK 0; SODIUM 138 MEQ/L (136-147); TOTAL BILIRUBIN 0.9 MG/DL (0.0-1.0); UREA NITROGEN (BUN) 47 mg/dL (9-23)
[2017-08-26 08:05] VITALS: BP 144/71
[2017-08-26 12:00] VITALS: BP 140/69
[2017-08-26 16:45] VITALS: BP 133/65
[2017-08-26 20:17] VITALS: BP 111/53
[2017-08-26 23:19] VITALS: BP 123/51
[2017-08-27] VITALS (8 sets, daily range): BP systolic 110–142; BP diastolic 46–60
[2017-08-27 06:17] LABS: HEMATOCRIT 28.7 % (38.0-50.0); MCH 29.8 PG (29.0-34.0); MEAN PLAT.VOLUME 10.3 uM^3 (9.0-12.4); PLATELET COUNT 119 K/uL (156-360); RBC DIS.WIDTH-CV 15.7 % (11.8-14.6); RED BLOOD COUNT 2.99 M/uL (4.00-5.50); WHITE BLOOD COUNT 4.4 K/uL (4.1-10.2)
[2017-08-27 07:13] LABS: ALKALINE PHOSPHATASE 96 IU/L (3-129); ANION GAP 11 MEQ/L (2-14); CHLORIDE 102 MEQ/L (99-109); GFR ESTIMATE (CALCULATED) 12 mL/min/ (58.99-99999); GLUCOSE 93 mg/dL (70-99); POTASSIUM 4.7 MEQ/L (3.7-5.4); SAMPLE HEMOLYSIS CHECK 0; SAMPLE ICTERIC CHECK 0; SAMPLE LIPEMIA CHECK 0; SODIUM 137 MEQ/L (136-147); TOTAL BILIRUBIN 0.8 MG/DL (0.0-1.0); UREA NITROGEN (BUN) 32 mg/dL (9-23)
[2017-08-27 20:59] LABS: POINT-OF-CARE METER ID UU14314088
[2017-08-27 21:38] LABS: BASE EXCESS 0.8 mEq/L (-3 to +3); BICARBONATE 26.6 mEq/L (22-26); CARBOXY HGB 2.7 % (0-5); PCO2 47 mm Hg (35-45); PO2 69 mm Hg (80-100); pH 7.36 (7.35-7.45)
[2017-08-27 21:39] LABS: COMMENTS - BLOOD GASES A+C+; DEVICE NC; O2 FLOW 2 L/MIN; SITE LR
[2017-08-27 21:48] LABS: HEMATOCRIT 29.5 % (38.0-50.0); MCH 30.3 PG (29.0-34.0); MCHC 33.2 G/DL (30.0-36.0); MEAN PLAT.VOLUME 10.1 uM^3 (9.0-12.4); PLATELET COUNT 136 K/uL (156-360); RBC DIS.WIDTH-CV 17.6 % (11.8-14.6); RED BLOOD COUNT 3.23 M/uL (4.00-5.50); WHITE BLOOD COUNT 5.9 K/uL (4.1-10.2)
[2017-08-27 21:56] LABS: ANION GAP 9 MEQ/L (2-14); CHLORIDE 100 MEQ/L (99-109); POTASSIUM 4.4 MEQ/L (3.7-5.4); SAMPLE HEMOLYSIS CHECK 0; SAMPLE ICTERIC CHECK 0; SAMPLE LIPEMIA CHECK 0; SODIUM 134 MEQ/L (136-147)
[2017-08-27 21:59] LABS: MCV 91.3 FL (86-99)
[2017-08-27 22:03] LABS: GFR ESTIMATE (CALCULATED) 10 mL/min/ (58.99-99999); GLUCOSE 91 mg/dL (70-99); UREA NITROGEN (BUN) 39 mg/dL (9-23)
[2017-08-27 22:16] LABS: ABS NEUTROPHIL COUNT 4.8; ANISOCYTOSIS 2+; BAND NEUTROPHILS 39.7 % (0-8.0); EOSINOPHIL ABS CT 0.4; INSTRUMENT ABS NEUTROPHIL CT 4.7 K/uL; LYMPHOCYTES 5.2 % (15.0-45.0); MACROCYTES 1+; METAMYELOCYTES 3.4 %; MICROCYTOSIS 1+; SEG.NEUTROPHILS 41.4 % (46.0-76.0)
[2017-08-28 00:34] VITALS: BP 110/52
[2017-08-28 04:03] VITALS: BP 135/54
[2017-08-28 06:57] VITALS: BP 132/57
[2017-08-28 11:00] VITALS: BP 134/57
[2017-08-28 12:45] LABS: HEMATOCRIT 31.8 % (38.0-50.0); MCH 29.9 PG (29.0-34.0); MCHC 32.7 G/DL (30.0-36.0); MCV 91.4 FL (86-99); PLATELET COUNT 147 K/uL (156-360); RBC DIS.WIDTH-CV 17.6 % (11.8-14.6); RED BLOOD COUNT 3.48 M/uL (4.00-5.50)
[2017-08-28 13:37] LABS: ANION GAP 13 MEQ/L (2-14); CHLORIDE 99 MEQ/L (99-109); GFR ESTIMATE (CALCULATED) 8 mL/min/ (58.99-99999); POTASSIUM 4.7 MEQ/L (3.7-5.4); SAMPLE HEMOLYSIS CHECK 0; SAMPLE ICTERIC CHECK 0; SAMPLE LIPEMIA CHECK 0; SODIUM 135 MEQ/L (136-147); TOTAL BILIRUBIN 0.9 MG/DL (0.0-1.0); UREA NITROGEN (BUN) 53 mg/dL (9-23)
[2017-08-28 13:38] LABS: ALKALINE PHOSPHATASE 124 IU/L (3-129); GLUCOSE 117 mg/dL (70-99)
[2017-08-28 14:02] LABS: ABS NEUTROPHIL COUNT 7.1; BASOPHILS 0.9 %; EOSINOPHIL ABS CT 0.1; EOSINOPHILS 1.7 % (0-5.0); INSTRUMENT ABS NEUTROPHIL CT 6.7 K/uL; LYMPHOCYTES 2.6 % (15.0-45.0); PLAT.SUFFICIENCY DECREASED
[2017-08-28 14:25] LABS: BAND NEUTROPHILS 4.4 % (0-8.0); SEG.NEUTROPHILS 84.3 % (46.0-76.0)
[2017-08-28 15:50] VITALS: BP 132/63
[2017-08-28 21:00] VITALS: BP 124/75
[2017-08-29 00:42] VITALS: BP 115/81
[2017-08-29 04:00] VITALS: BP 130/75
[2017-08-29 05:59] LABS: HEMATOCRIT 29.1 % (38.0-50.0); MCH 29.6 PG (29.0-34.0); MCHC 32.6 G/DL (30.0-36.0); MCV 90.7 FL (86-99); MEAN PLAT.VOLUME 10.4 uM^3 (9.0-12.4); PLATELET COUNT 151 K/uL (156-360); RBC DIS.WIDTH-CV 17.3 % (11.8-14.6); RBC DIS.WIDTH-SD 57.7 % (39-53); RED BLOOD COUNT 3.21 M/uL (4.00-5.50); WHITE BLOOD COUNT 9.4 K/uL (4.1-10.2)
[2017-08-29 06:27] LABS: ALKALINE PHOSPHATASE 160 IU/L (3-129); ANION GAP 11 MEQ/L (2-14); CHLORIDE 100 MEQ/L (99-109); GFR ESTIMATE (CALCULATED) 7 mL/min/ (58.99-99999); GLUCOSE 110 mg/dL (70-99); POTASSIUM 4.8 MEQ/L (3.7-5.4); SAMPLE HEMOLYSIS CHECK 0; SAMPLE ICTERIC CHECK 0; SAMPLE LIPEMIA CHECK 0; SODIUM 135 MEQ/L (136-147); TOTAL BILIRUBIN 0.7 MG/DL (0.0-1.0); UREA NITROGEN (BUN) 66 mg/dL (9-23)
[2017-08-29 12:30] VITALS: BP 130/54
[2017-08-29 16:32] VITALS: BP 124/62
[2017-08-29 18:42] VITALS: BP 135/66
[2017-08-30 00:42] VITALS: BP 121/55
[2017-08-30 05:15] VITALS: BP 127/60
[2017-08-30 05:32] LABS: BASOPHIL COUNT 0.1 K/uL (0-0.1); EOSINOPHIL (%) 4.3 % (0-5); EOSINOPHIL COUNT 0.5 K/uL (0-0.3); HEMATOCRIT 31.9 % (38.0-50.0); IMMATURE GRANULOCYTE COUNT 0.1 K/uL; LYMPHOCYTE COUNT 0.8 K/uL (1.0-2.8); MCH 29.1 PG (29.0-34.0); MCV 93.8 FL (86-99); MEAN PLAT.VOLUME 10.2 uM^3 (9.0-12.4); MONOCYTE (%) 8.1 % (3-12); MONOCYTE COUNT 0.9 K/uL (0-0.8); PLATELET COUNT 176 K/uL (156-360); RBC DIS.WIDTH-CV 17.4 % (11.8-14.6); RBC DIS.WIDTH-SD 60.4 % (39-53); WHITE BLOOD COUNT 11.4 K/uL (4.1-10.2)
[2017-08-30 06:04] LABS: ANION GAP 12 MEQ/L (2-14); CHLORIDE 100 MEQ/L (99-109); GFR ESTIMATE (CALCULATED) 11 mL/min/ (58.99-99999); GLUCOSE 81 mg/dL (70-99); POTASSIUM 4.3 MEQ/L (3.7-5.4); SAMPLE HEMOLYSIS CHECK 0; SAMPLE ICTERIC CHECK 0; SAMPLE LIPEMIA CHECK 0; SODIUM 137 MEQ/L (136-147); UREA NITROGEN (BUN) 36 mg/dL (9-23); VANCOMYCIN, TROUGH 15.9 MCG/ML (10-20)
[2017-08-30 09:00] VITALS: BP 136/60
[2017-08-30 12:00] VITALS: BP 117/72; BP 133/56
[2017-08-30 20:34] VITALS: BP 132/57
[2017-08-31 00:20] VITALS: BP 138/64
[2017-08-31 04:10] VITALS: BP 137/64
[2017-08-31 04:56] LABS: HEMATOCRIT 33.3 % (38.0-50.0); MCH 29.4 PG (29.0-34.0); MCHC 32.4 G/DL (30.0-36.0); MCV 90.7 FL (86-99); MEAN PLAT.VOLUME 9.7 uM^3 (9.0-12.4); PLATELET COUNT 173 K/uL (156-360); RBC DIS.WIDTH-CV 16.8 % (11.8-14.6); RBC DIS.WIDTH-SD 56.1 % (39-53); RED BLOOD COUNT 3.67 M/uL (4.00-5.50); WHITE BLOOD COUNT 6.8 K/uL (4.1-10.2)
[2017-08-31 05:15] LABS: CHLORIDE 95 mEq/L (99-109); POTASSIUM 4.8 mEq/L (3.7-5.4); SODIUM 132 mEq/L (136-147)
[2017-08-31 05:18] LABS: ANION GAP 13 MEQ/L (2-14)
[2017-08-31 05:19] LABS: TOTAL BILIRUBIN 0.7 mg/dL (0.0-1.0)
[2017-08-31 05:20] LABS: ALKALINE PHOSPHATASE 228 IU/L (3-129)
[2017-08-31 05:21] LABS: GFR ESTIMATE (CALCULATED) 8 mL/min/ (58.99-99999)
[2017-08-31 05:22] LABS: GLUCOSE 128 mg/dL (70-99); UREA NITROGEN (BUN) 54 mg/dL (9-23)
[2017-08-31 06:06] LABS: VANCOMYCIN, TROUGH 23.4 MCG/ML (10-20)
[2017-08-31 17:26] VITALS: BP 122/55
[2017-08-31 18:36] VITALS: BP 125/52
[2017-08-31 23:44] VITALS: BP 110/54
[2017-09-01 04:24] VITALS: BP 114/60
[2017-09-01 08:15] VITALS: BP 139/65
[2017-09-01 11:47] VITALS: BP 131/61
[2017-09-01 17:16] VITALS: BP 137/72
[2017-09-01 19:20] VITALS: BP 165/67
[2017-09-02 00:12] VITALS: BP 146/69
[2017-09-02 04:56] VITALS: BP 167/68
[2017-09-02 07:00] VITALS: BP 158/76
[2017-09-02 07:09] LABS: EOSINOPHIL (%) 0 % (0-5); HEMATOCRIT 35.2 % (38.0-50.0); IMMATURE GRANULOCYTE (%) 2.8 % (0.0-0.7); IMMATURE GRANULOCYTE COUNT 0.4 K/uL; INSTRUMENT ABS NEUTROPHIL CT 11.3 K/uL; LYMPHOCYTE COUNT 0.6 K/uL (1.0-2.8); MCH 28.8 PG (29.0-34.0); MCHC 31.8 G/DL (30.0-36.0); MCV 90.5 FL (86-99); MEAN PLAT.VOLUME 9.8 uM^3 (9.0-12.4); MONOCYTE (%) 1.8 % (3-12); MONOCYTE COUNT 0.2 K/uL (0-0.8); NEUTROPHIL (%) 90.6 % (45-76); NEUTROPHIL COUNT 11.3 K/uL (1.8-6.4); RBC DIS.WIDTH-CV 16.9 % (11.8-14.6); RBC DIS.WIDTH-SD 56.1 % (39-53); RED BLOOD COUNT 3.89 M/uL (4.00-5.50); WHITE BLOOD COUNT 12.5 K/uL (4.1-10.2)
[2017-09-02 07:35] LABS: ANION GAP 14 MEQ/L (2-14); CHLORIDE 93 MEQ/L (99-109); GFR ESTIMATE (CALCULATED) 9 mL/min/ (58.99-99999); GLUCOSE 183 mg/dL (70-99); POTASSIUM 4.8 MEQ/L (3.7-5.4); SAMPLE HEMOLYSIS CHECK 0; SAMPLE ICTERIC CHECK 0; SAMPLE LIPEMIA CHECK 0; SODIUM 134 MEQ/L (136-147); UREA NITROGEN (BUN) 83 mg/dL (9-23)
[2017-09-02 07:44] LABS: PLATELET COUNT 255 K/uL (156-360)
[2017-09-02 11:50] VITALS: BP 154/78
[2017-09-02] MEDS ORDERED: PERCOCET 5/31 TABLET PO (13:35)
[2017-09-02] MEDS ORDERED: PREDNISONE10 MG PO (13:35)
[2017-09-02] MEDS ORDERED: AUGMENTIN875 MG PO (13:35)
[2017-09-02 16:50] VITALS: BP 156/75
[2017-09-02 19:56] VITALS: BP 114/58
[2017-09-03 00:21] VITALS: BP 131/69
[2017-09-03 07:09] LABS: EOSINOPHIL (%) 0 % (0-5); HEMATOCRIT 33.5 % (38.0-50.0); IMMATURE GRANULOCYTE (%) 4.5 % (0.0-0.7); IMMATURE GRANULOCYTE COUNT 0.4 K/uL; INSTRUMENT ABS NEUTROPHIL CT 8.6 K/uL; LYMPHOCYTE COUNT 0.5 K/uL (1.0-2.8); MCH 29.3 PG (29.0-34.0); MCHC 32.2 G/DL (30.0-36.0); MCV 90.8 FL (86-99); MEAN PLAT.VOLUME 9.9 uM^3 (9.0-12.4); MONOCYTE (%) 2.4 % (3-12); MONOCYTE COUNT 0.2 K/uL (0-0.8); NEUTROPHIL (%) 87.7 % (45-76); NEUTROPHIL COUNT 8.6 K/uL (1.8-6.4); PLATELET COUNT 226 K/uL (156-360); RBC DIS.WIDTH-CV 17.2 % (11.8-14.6); RBC DIS.WIDTH-SD 55.9 % (39-53); RED BLOOD COUNT 3.69 M/uL (4.00-5.50); WHITE BLOOD COUNT 9.8 K/uL (4.1-10.2)
[2017-09-03 08:22] VITALS: BP 168/62
== END 2017-09-03 11:18 | DRG 414 ==
LOC: SDC 10:13 → ENRESERV 14:37 → 2SOUTH 14:38 → 4EAST 14:38 → ENRESERV 15:55 → 4EAST 20:11 → ENRESERV 08-31 13:48 → 3EAST 08-31 18:03
PROVIDERS: Internal Medicine Nephrology; Student in an Organized Health Care Education/Training Program; Surgery
DX: K81.0 Acute cholecystitis (principal); N18.6 End stage renal disease; J18.9 Pneumonia, unspecified organism; L03.90 Cellulitis, unspecified; I12.0 Hypertensive chronic kidney disease with stage 5 chronic kidney disease or end stage renal disease; R78.81 Bacteremia; L76.32 Postprocedural hematoma of skin and subcutaneous tissue following other procedure; J44.1 Chronic obstructive pulmonary disease with (acute) exacerbation; J44.0 Chronic obstructive pulmonary disease with (acute) lower respiratory infection; K80.00 Calculus of gallbladder with acute cholecystitis without obstruction; B96.6 Bacteroides fragilis [B. fragilis] as the cause of diseases classified elsewhere; B96.20 Unspecified Escherichia coli [E. coli] as the cause of diseases classified elsewhere; R68.2 Dry mouth, unspecified; Y92.239 Unspecified place in hospital as the place of occurrence of the external cause; Y95 Nosocomial condition; D64.9 Anemia, unspecified; Y83.8 Other surgical procedures as the cause of abnormal reaction of the patient, or of later complication, without mention of misadventure at the time of the procedure; K66.0 Peritoneal adhesions (postprocedural) (postinfection); D69.6 Thrombocytopenia, unspecified; I25.10 Atherosclerotic heart disease of native coronary artery without angina pectoris; T38.0X5A Adverse effect of glucocorticoids and synthetic analogues, initial encounter; K82.8 Other specified diseases of gallbladder; Z66 Do not resuscitate; Z53.31 Laparoscopic surgical procedure converted to open procedure; Z09 Encounter for follow-up examination after completed treatment for conditions other than malignant neoplasm; Z99.2 Dependence on renal dialysis; Z85.038 Personal history of other malignant neoplasm of large intestine; Z79.82 Long term (current) use of aspirin; Z87.891 Personal history of nicotine dependence; Z86.14 Personal history of Methicillin resistant Staphylococcus aureus infection; Z97.8 Presence of other specified devices; Z79.899 Other long term (current) drug therapy; Z88.8 Allergy status to other drugs, medicaments and biological substances
CPT/HCPCS: 36600; 71010; 71260; 74177; 74328; 78226; 80048; 80048 91; 80053; 80069; 80202; 81003; 82803; 82948; 83735; 84100; 84132; 85025; 85027; 85610; 85730; 86850; 86900; 86901; 86920; 87070; 87075; 87076; 87081; 87185; 87205; 87641; 88304; 94640; 94640 76; 94799; 97530 GO; 97530 GP; 99202; A9510; C1769; C2625; C9113; J0131; J0690; J0744; J0881; J1100; J1170; J1644; J2270; J2405; J2543; J2710; J2920; J3010; J3370; J7050; J7512; P9016

== ENCOUNTER 2017-11-08 07:06 | Day surgery (SDC) | payer OTHER ==
[~2017-11-08] VITALS: Ht 172.7 cm; Wt 64.0 kg
[~2017-11-08 07:06] MED LIST changes: +ACID CONTROL150 MG PO; +AUGMENTIN875 MG PO; +PERCOCET 5/31 TABLET PO; +PREDNISONE10 MG PO
== END 2017-11-08 10:25 | disposition home or self-care (01) ==
LOC: CATH 07:06
PROC: 057Y3ZZ Dilation of Upper Vein, Percutaneous Approach (ICD-10-PCS; principal; 2017-11-08)
PROC: B51W1ZZ Fluoroscopy of Dialysis Shunt/Fistula using Low Osmolar Contrast (ICD-10-PCS; principal; 2017-11-08)
PROC: 05HY33Z Insertion of Infusion Device into Upper Vein, Percutaneous Approach (ICD-10-PCS; principal; 2017-11-08)
PROC: 3E03317 Introduction of Other Thrombolytic into Peripheral Vein, Percutaneous Approach (ICD-10-PCS; principal; 2017-11-08)
DX: T82.858A Stenosis of other vascular prosthetic devices, implants and grafts, initial encounter (principal); Y83.2 Surgical operation with anastomosis, bypass or graft as the cause of abnormal reaction of the patient, or of later complication, without mention of misadventure at the time of the procedure; N18.6 End stage renal disease; Z99.2 Dependence on renal dialysis
CPT/HCPCS: 87641; C1725; C1769; C1894; J1644; J2250; J3010

== ENCOUNTER → 2017-12-08 | Outpatient (CLI) | payer OTHER ==
[~2017-12-08] VITALS: Ht 172.7 cm; Wt 63.5 kg
[2017-12-08 13:15] LABS: HEMATOCRIT 46.2 % (38.0-50.0); HEMOGLOBIN 14.7 G/DL (12.5-16.6); MCV 91.3 FL (86-99)
[2017-12-08 13:40] LABS: CHLORIDE 99 MEQ/L (99-109); CREATININE 6.3 MG/DL (0.6-1.3); GFR ESTIMATE (CALCULATED) 9 mL/min/ (58.99-99999); GLUCOSE 93 mg/dL (70-99); SODIUM 138 MEQ/L (136-147); UREA NITROGEN (BUN) 25 mg/dL (9-23)
== END | disposition home or self-care (01) ==
LOC: AMB 11-17 08:00 → OPR 11-17 10:30 → AMB 12:00
PROVIDERS: Anesthesiology
PROC: 0FPB8DZ Removal of Intraluminal Device from Hepatobiliary Duct, Via Natural or Artificial Opening Endoscopic (ICD-10-PCS; principal; 2017-12-08)
DX: Z45.89 Encounter for adjustment and management of other implanted devices (principal)
CPT/HCPCS: 74330; 80048; 85014; 85018; 87081; C1757; C1769; J1170